=== PATIENT | male | born 1985 | race Caucasian/White ===

== ENCOUNTER → 2020-06-08 | Outpatient (CLI) | payer OTHER ==
[2020-06-08 10:24] LABS: SPERM MORPHOLOGY SENT TO REFERENC LAB
[2020-06-08 11:05] LABS: SPERM CONCENTRATION 44.8 X10^6/mL (>12.0); SPERM PROGRESSION 3; TOTAL SPERM COUNT 71.7 X10^6 (>33.0)
== END ==
LOC: LAB 10:21
PROVIDERS: ATTEND Student in an Organized Health Care Education/Training Program
DX: N46.9 Male infertility, unspecified (principal)
CPT/HCPCS: 89320